=== PATIENT | male | born 1985 | race African-American/Black ===

== ENCOUNTER 2016-06-04 13:45 | Emergency (ER) | payer OTHER ==
[2016-06-04 14:27] LABS: BASOPHILS % 0.4 (0.0-1.5); EOSINOPHILS % 3.2 % (0.0-6.8); MEAN CORPUSCULAR HEMOGLOBIN 31.9 pg (28.0-34.0); MONOCYTES % 4.4 % (0.0-11.0)
[2016-06-04 14:30] LABS: eGFR (African) > 60; eGFR (Non-African) > 60
--- NOTE | 2016-06-04 14:50 | ED Physician Documentation ---
Chest Pain - HISTORIAN Historian: patient, friend - HPI Stated Complaint: Reproducible Chest Wall Pain Chief Complaint: Chest Pain Additional Information: lt low and lat chest rib pain worse w/deep breath and palpation-hx pud rec br red blood w/stool pain rated 4/10drinks 4-5 red bull per day - drank 1/2 this am w/exab pain Onset: days ago (3) Timing: gradual onset, still present Duration: waxing, waning Last known Well Date: 06/01/16 Last Known Well Time: 08:00 Severity: moderate Quality: pressure, tightness, dull, sharp Chest Pain Radiation: no radiation Chest Pain Signs/Symptoms: nausea. denies: vomiting, diaphoresis Worsened By: other (red bull or cigarettes) Relieved By: antacids, other (plrev w/ ranitidine but not now/prev tookk omiprazole but not recently) - ROS CONST: denies: no problems, recent injury - PAST HX NC risk factors: denies: cardiac disease DVT/PE Risk Factors: other (peptic ulcer disease) Neuro deficit: none GI disease: GERD, peptic ulcer Lung disease: none Surgeries/Procedures: none Allergies/Adverse Reactions: Allergies Allergy/AdvReac Type Severity Reaction Status Date / Time No Known Allergies Allergy Verified 06/04/16 13:56 Home Medications: Ambulatory Orders Medication Instructions Recorded NK [NK] 07/28/15 - SOCIAL HX Smoking History: less than 1 pack/day Alcohol Use: occasionally Drug Use: none - FAMILY HX Family HX: none - VITAL SIGNS Vital Signs: Vital Signs Temp Pulse Resp BP Pulse Ox 98.1 F 60 16 120/65 98 06/04/16 13:45 06/04/16 13:59 06/04/16 13:45 06/04/16 13:45 06/04/16 13:59 - REVIEWED ASSESSMENTS Nursing Assessment Reviewed: Yes Vitals Reviewed: Yes ED Results Lab/Radiology - Lab Results Lab Results: Lab Results 06/04/16 06/04/16 06/04/16 13:59 13:59 13:59 WBC 9.40 K/ul K/ul (4.00-12.00) RBC 4.60 M/ul M/ul (3.90-5.20) Hgb 14.7 g/dL g/dL (12.0-18.0) Hct 44.1 % % (37.0-53.0) MCV 96.0 fl fl (80.0-100.0) MCH 31.9 pg pg (28.0-34.0) MCHC 33.3 g/dL g/dL (30.0-36.0) RDW 13.3 % % (11.3-14.3) Plt Count 222 K/mm3 K/mm3 (130-400) Neut % (Auto) 73.7 % % (39.0-79.0) Lymph % (Auto) 16.7 % % (16.0-50.0) [place] % (Auto) 4.4 % % (0.0-11.0) Eos % (Auto) 3.2 % % (0.0-6.8) Baso % (Auto) 0.4 (0.0-1.5) Neut # 7.0 # k/uL # k/uL (1.4-7.7) Lymph # 1.6 # k/uL # k/uL (0.6-4.0) [place] # 0.4 # k/uL # k/uL (0.0-0.9) Eos # 0.3 # k/uL # k/uL (0.0-0.6) Baso # 0.0 # k/uL # k/uL (0.0-0.5) Reactive Lymphs % 1.5 % % (0.0-5.0) Reactive Lymphs # 0.1 # k/uL # k/uL (0.0-0.8) Sodium 143 mmol/L mmol/L (136-145) Potassium 4.0 mmol/L mmol/L (3.5-5.0) Chloride 110 mmol/L mmol/L (98-110) Carbon Dioxide 31 mmol/L mmol/L (20-32) BUN 13 mg/dL mg/dL (10-26) Creatinine 0.6 mg/dL mg/dL (0.4-1.5) Estimated Creat Clear 206 Est GFR ( Amer) > 60 (60 - ) Est GFR (Non-Af Amer) > 60 (60 - ) Glucose 100 mg/dL H mg/dL (70-99) Calcium 9.6 mg/dL mg/dL (8.5-10.5) Total Bilirubin 0.5 mg/dL mg/dL (0.2-1.2) AST 26 U/L U/L (0-41) ALT 26 U/L U/L (0-45) Alkaline Phosphatase 76 U/L U/L (46-116) Creatine Kinase 238 U/L H U/L (0-225) Troponin I < 0.03 ng/mL L ng/mL (0.03-0.06) Total Protein 7.0 g/dL g/dL (6.0-8.5) Albumin 4.8 g/dL g/dL (3.0-5.5) - Orders Orders: ED Orders Category Date Time Status Continuous EKG monitoring Q30M Care 06/04/16 13:59 Active Continuous Pulse Oximetry Q30M Care 06/04/16 13:59 Active CBC/PLATELET/DIFF Routine Lab 06/04/16 13:59 Completed CMP Routine Lab 06/04/16 13:59 Completed CREATINE KINASE Routine Lab 06/04/16 13:59 Completed TROPONIN I (cTnI) Stat Lab 06/04/16 13:59 Completed EKG WITH COMPARISON Stat Ther 06/04/16 13:59 Ordered Chest Pain Physical Exam - EXAM General Appearance: mild distress EENT: eye inspection normal Neck: nml inspection, no carotid bruit. No: JVD present, lymphadenopathy Respiratory: no resp. distress. No: chest non-tender (palp area reprod pain) CVS: reg. rate & rhythm, no murmur Abdomen: soft, non-tender Skin: warm/dry, normal color. No: cyanosis, diaphoresis, jaundice Extremities: non-tender, normal range of motion, no evidence of injury Neuro: oriented X3, CN's nml as tested, motor nml, sensation nml Discharge Clincal Impression: exab peptic uler ds, xs red bull cigs etoh Home Medications: Ambulatory Orders NK [NK] 07/28/15 Comments: stkkop red bul;l cigs and red etoh. also stalrt omiprazole 40mg daily - f/ u w/ pcp soon Condition: Good Disposition: 01 HOME, SELF-CARE Decision to Admit: NO Decision Time: 14:57
[2016-06-04 15:22] VITALS: BP 118/68
== END 2016-06-04 15:20 | disposition home or self-care (01) ==
LOC: ED 13:45
DX: K27.7 Chronic peptic ulcer, site unspecified, without hemorrhage or perforation (principal)
CPT/HCPCS: 80053; 82550; 84484; 85025; 99283

== ENCOUNTER 2016-06-28 20:12 | Emergency (ER) | payer OTHER ==
[2016-06-28] MEDS ORDERED: KETOROLAC TROMETHAMINE 60 MG/2 ML VIAL IM ONE (20:41)
[2016-06-28] MEDS ORDERED: ORPHENADRINE CITRATE 60 MG/2ML IM ONE (20:41)
--- NOTE | 2016-06-28 21:28 | ED Physician Documentation ---
General Adult - HISTORIAN Historian: patient - HPI Stated Complaint: BACK PAIN Chief Complaint: General Adult Additional Information: Sudden onset left lower back spasm while at work this evening. Has had this same pain in the past but not for years. No loss bowel or bladder control, no numbness or tingling. Timing: still present - ROS CONST: no problems - PAST HX Past History: other (back pain) Allergies/Adverse Reactions: Allergies Allergy/AdvReac Type Severity Reaction Status Date / Time No Known Allergies Allergy Verified 06/28/16 20:27 Home Medications: Ambulatory Orders Medication Instructions Recorded Cyclobenzaprine HCl [Flexeril] 10 mg PO HS PRN #20 tablet 06/28/16 Omeprazole [Prilosec] 20 mg PO D 06/28/16 - SOCIAL HX Smoking History: cigarettes (1/2 PPD for 10 yers; 1/4 PPD for 10 years prior) Alcohol Use: occasionally - FAMILY HX Family History: No - VITAL SIGNS Vital Signs: Vital Signs Temp Pulse Resp BP Pulse Ox 37.6 F L 89 20 118/68 99 06/28/16 20:23 06/28/16 20:23 06/28/16 20:23 06/28/16 20:23 06/28/16 20:23 - REVIEWED ASSESSMENTS Nursing Assessment Reviewed: Yes Vitals Reviewed: Yes Progress - Progress Progress: Better after toradol and norflex. HS Flexeril and tylenol at home. (On omeprazole). ED Results Lab/Radiology - Orders Orders: ED Orders Category Date Time Status Ketorolac Tromethamine [Toradol] Med 06/28/16 20:41 Discontinued 60 mg IM NOW ONE Orphenadrine Citrate [Norflex] Med 06/28/16 20:41 Discontinued 60 mg IM NOW ONE General Adult Physical Exam - PHYSICAL EXAM GENERAL APPEARANCE: moderate distress (at time of arrival) EENT: eye inspection normal, ENT inspection normal NECK: normal inspection, supple RESPIRATORY: no resp distress, breath sounds normal CVS: reg rate & rhythm, heart sounds normal, no murmur RECTAL: deferred BACK: normal inspection, other (some left lumbar paraspinous muscle spasm) SKIN: warm/dry, normal color EXTREMITIES: normal range of motion (gait) NEURO: CN's nml as tested, motor nml, sensation nml, other (Reflexes 2+ throughout. SLR negative to 90 degrees+ chetan. ) Discharge Clincal Impression: Back pain Qualifiers: Back pain location: low back pain Chronicity: acute Back pain laterality: left Sciatica presence: without sciatica Qualified Code(s): M54.5 - Low back pain Prescriptions: Cyclobenzaprine HCl [Flexeril] 10 mg PO HS PRN #20 tablet PRN Reason: back pain Referrals: Primary Doctor,No [Primary Care Provider] - 2 Days Home Medications: Ambulatory Orders Cyclobenzaprine HCl [Flexeril] 10 mg PO HS PRN #20 tablet 06/28/16 Omeprazole [Prilosec] 20 mg PO D 06/28/16 Condition: Good Disposition: 01 HOME, SELF-CARE Decision to Admit: NO Decision Time: 21:27
== END 2016-06-28 21:55 | disposition home or self-care (01) ==
LOC: ED 20:12
DX: M54.5 Low back pain (principal)
CPT/HCPCS: J1885; J2360; 96372; 99283

== ENCOUNTER 2017-05-25 10:41 | Emergency (ER) | payer SELFPAY ==
[2017-05-25] MEDS ORDERED: ORPHENADRINE CITRATE 60 MG/2ML IM ONE (10:53)
[2017-05-25] MEDS ORDERED: KETOROLAC TROMETHAMINE 60 MG/2 ML VIAL IM ONE (10:53)
[2017-05-25 10:56] VITALS: BP 120/73
--- NOTE | 2017-05-25 12:50 | ED Physician Documentation ---
Low Back Pain - HISTORIAN Historian: patient - HPI Stated Complaint: LBP (little to right of center), weakness to hands in early AM Chief Complaint: Low Back Pain/ Injury History: back pain Onset: hours Duration: continues in ED, worse Recent Injury: No Context: lifting, other (cutting wood this morning) Where: home Severity: moderate Quality: similar- prior back pain (spasms) Worsened By:: nothing Relieved By: nothing Further Comments: yes (31 year old male patient presents with complaints of lower back pain and spasms after cutting wood this morning. Did not take any pain medications [employer]. Denies loss of bowel or bladder; denies numbness or tingling in arms or legs.) - ROS CONST: no problems CVS/RESP: none EYES/ENT: none MS/SKIN/LYMPH: none Neuro/Psych: none - PAST HX Past History: back pain Allergies/Adverse Reactions: Allergies Allergy/AdvReac Type Severity Reaction Status Date / Time No Known Allergies Allergy Verified 05/25/17 10:56 Home Medications: Ambulatory Orders Medication Instructions Recorded Baclofen [Liorasal] 10 mg PO TID PRN #30 tablet 05/25/17 Ketorolac Tromethamine [Toradol] 10 mg PO TID #15 tablet 05/25/17 - SOCIAL HX Smoking History: cigarettes - FAMILY HX Family History: denies: none - VITAL SIGNS Vital Signs: Vital Signs Temp Pulse Resp BP Pulse Ox 97.8 F 88 16 120/73 98 05/25/17 10:42 05/25/17 11:33 05/25/17 11:33 05/25/17 11:33 05/25/17 10:42 - REVIEWED ASSESSMENTS Nursing Assessment Reviewed: Yes Vitals Reviewed: Yes Progress - Progress Progress: patient able to stand from chair without grimacing. Walked to stretcher - no c/ o pain, no grimacing. Able to lie flat and roll to stomach with no c/o pain, no grimacing. ED Results Lab/Radiology - Orders Orders: ED Orders Category Date Time Status Ketorolac Tromethamine [Toradol] Med 05/25/17 10:53 Discontinued 60 mg IM NOW ONE Orphenadrine Citrate [Norflex] Med 05/25/17 10:53 Discontinued 60 mg IM NOW ONE Low Back Pain/Injury - Physical Exam General Appearance: alert, mild distress EENT: eye inspection normal, AMRITA Resp/CVS: chest non-tender, breath sounds nml, heart sounds nml, no resp. distress, lungs clear, reg. rate & rhythm Abdomen: non-tender Back: muscle spasm (left lumbar paraspinous muscles) Straight Leg Raising: Negative Left, Negative Right Neuro/Psych: oriented x3, motor nml, sensation nml, bilat. doriflexion nml, reflexes nml, mood/affect nml Skin: normal color, warm/dry, NR, INT, PAL, DR Extremities: non-tender, normal range of motion, no evidence of injury, no edema , J, CONTENT PUBLISHER Discharge Clincal Impression: Back pain Qualifiers: Back pain location: low back pain Chronicity: acute Back pain laterality: right Sciatica presence: without sciatica Qualified Code(s): M54.5 - Low back pain Prescriptions: Baclofen [Liorasal] 10 mg PO TID PRN #30 tablet PRN Reason: Spasms Ketorolac Tromethamine [Toradol] 10 mg PO TID #15 tablet Referrals: Primary Doctor,No [Primary Care Provider] - 2 Days Condition: Stable Disposition: 01 HOME, SELF-CARE Decision to Admit: NO Decision Time: 11:25
== END 2017-05-25 11:10 | disposition home or self-care (01) ==
LOC: ED 10:41
DX: M54.5 Low back pain (principal)
CPT/HCPCS: J1885; J2360; 96372; 99283

== ENCOUNTER 2017-12-13 15:35 | Emergency (ER) | payer SELFPAY ==
[2017-12-13 15:49] VITALS: BP 131/82
[2017-12-13] MEDS: AMOXICILLIN 500 MG CAPSULE PO ONE (15:59)
[2017-12-13] MEDS: traMADol HCL 50 MG TABLET PO ONE (15:59)
--- NOTE | 2017-12-13 16:01 | ED Physician Documentation ---
Sore Throat/Dental Pain - HISTORIAN Historian: patient - HPI Stated Complaint: left upper dental pain Chief Complaint: Dental Pain Additional Information: Dental pain Left upper and lower for two days. Needs dental insurance. [place]ook total of 800 mg ibuprofen today and tylenol last evening. He has been taking hot showers to help with the pain. No other modifying factors or associated signs. - ROS CONST: no problems - PAST HX Past History: other (stomach ulcer) Allergies/Adverse Reactions: Allergies Allergy/AdvReac Type Severity Reaction Status Date / Time No Known Allergies Allergy Verified 05/25/17 10:56 Home Medications: Ambulatory Orders Medication Instructions Recorded Baclofen [Liorasal] 10 mg PO TID PRN #30 tablet 05/25/17 Ketorolac Tromethamine [Toradol] 10 mg PO TID #15 tablet 05/25/17 Amoxicillin 500 mg PO Q8H #30 capsule 12/13/17 Tramadol HCl [Ultram] 50 mg PO Q4H PRN #18 tablet 12/13/17 - SOCIAL HX Smoking History: non-smoker - FAMILY HX Family History: Yes - VITAL SIGNS Vital Signs: Vital Signs Temp Pulse Resp BP Pulse Ox 98.3 F 79 16 131/82 98 12/13/17 15:35 12/13/17 15:35 12/13/17 15:35 12/13/17 15:35 12/13/17 15:35 - REVIEWED ASSESSMENTS Nursing Assessment Reviewed: Yes ED Results Lab/Radiology - Orders Orders: ED Orders Category Date Time Status Amoxicillin [Amoxil] Med 12/13/17 15:51 Once 500 mg PO NOW ONE traMADol HCL [Ultram] Med 12/13/17 15:51 Once 50 mg PO NOW ONE Dental Pain Physical Exam - EXAM General Appearance: alert, mild distress Head/Neck: head nml inspection, no lymphadenopathy, other (#16 eroded, mandibulaar molars with decay. Some gingival erythema throughout). No: mandibular swelling (R), mandibular swelling (L) Eyes: eyes nml inspection Mouth/Throat: lips nml, pharynx nml, voice nml, no drooling, no air way problems, other (no doscreet abscess ID'ed) Ear/Nose: nml inspection. No: TM erythema Respiratory: no resp. distress, breath sounds nml CVS: reg. rate & rhythm, heart sounds nml Skin: warm/dry, normal color Neuro/Psych: none Discharge Clincal Impression: Pain, dental Prescriptions: Amoxicillin 500 mg PO Q8H #30 capsule Tramadol HCl [Ultram] 50 mg PO Q4H PRN #18 tablet PRN Reason: Pain Referrals: Primary Doctor,No [Primary Care Provider] - 2 Days Condition: Good Disposition: 01 HOME, SELF-CARE Decision to Admit: NO Decision Time: 16:00
== END 2017-12-13 16:01 | disposition home or self-care (01) ==
LOC: ED 15:35
DX: K08.89 Other specified disorders of teeth and supporting structures (principal)
CPT/HCPCS: 99283

== ENCOUNTER 2017-12-17 01:55 | Emergency (ER) | payer SELFPAY ==
--- NOTE | 2017-12-17 02:03 | ED Physician Documentation ---
Sore Throat/Dental Pain - HISTORIAN Historian: patient - HPI Stated Complaint: dental pain Chief Complaint: Dental Pain Additional Information: Patient presents to ED with a 1 week history of left upper dental pain. Patient was seen here on 12/13/17 and given Amoxil and tramadol. The meds initially improved the pain but over the past 2 days it has worsened and he ran out of Tramadol. He does not have dental insurance and cannot afford to go. Denies fever. Context: Dental Caries Associated Symptoms: denies: fever, chills Worsened By: other (air). denies: cold - ROS CONST: no problems CVS/RESP: denies: chest pain, shortness of breath GI/: denies: nausea, vomiting MS/SKIN/LYMPH: denies: rash NEURO/PSYCH: denies: headache - PAST HX Past History: gum disease Other History: none Allergies/Adverse Reactions: Allergies Allergy/AdvReac Type Severity Reaction Status Date / Time No Known Allergies Allergy Verified 12/17/17 02:00 Home Medications: Ambulatory Orders Medication Instructions Recorded Amoxicillin 500 mg PO Q8H #30 capsule 12/13/17 Tramadol HCl [Ultram] 50 mg PO Q4H PRN #18 tablet 12/13/17 Penicillin V Potassium [Pen V K] 500 mg PO TID #30 tablet 12/17/17 traMADol HCL [Ultram] 50 mg PO Q8 PRN #6 tablet 12/17/17 - SOCIAL HX Smoking History: cigarettes, greater than 1 pack/day Alcohol Use: none Drug Use: none - FAMILY HX Family History: No - VITAL SIGNS Vital Signs: Vital Signs Temp Pulse Resp BP Pulse Ox 131/82 12/13/17 16:05 - REVIEWED ASSESSMENTS Nursing Assessment Reviewed: Yes Vitals Reviewed: Yes Dental Pain Physical Exam - EXAM General Appearance: no acute distress, alert Head/Neck: head nml inspection, no lymphadenopathy, other. No: maxillary swelli ng (L) Eyes: PERRL Mouth/Throat: dental tenderness, gum swelling around teeth, widespread dental decay Ear/Nose: nml inspection Respiratory: no resp. distress, breath sounds nml CVS: reg. rate & rhythm, heart sounds nml Abdomen: soft Extremities: non-tender Skin: warm/dry Neuro/Psych: none Discharge Clincal Impression: Dental caries Prescriptions: Penicillin V Potassium [Pen V K] 500 mg PO TID #30 tablet traMADol HCL [Ultram] 50 mg PO Q8 PRN #6 tablet PRN Reason: Pain Referrals: Primary Doctor,No [Primary Care Provider] - 2 Days Additional Instructions: Follow up with Dentist as soon as possible. Smoking cessation recommended. Condition: Stable Disposition: 01 HOME, SELF-CARE Decision to Admit: NO Date of Decison to Admit: 12/17/17 Decision Time: 02:21
[2017-12-17] MEDS ORDERED: Lidocaine 2% 20ml Vial IP ONE (02:05)
[2017-12-17 02:07] VITALS: BP 131/76
[2017-12-17] MEDS: Lidocaine 1% 5ml(IM or SUTURE)(PAIN CLINIC) ONE (02:19)
[2017-12-17] MEDS: Lidocaine 1% 5ml(IM or SUTURE)(PAIN CLINIC) IJ ONE (02:19)
[2017-12-17] MEDS: cefTRIAXone SODIUM 1 GM VIAL IM ONE (02:19)
[2017-12-17] MEDS: traMADol HCL 50 MG TABLET PO ONE (02:19)
== END 2017-12-17 02:26 | disposition home or self-care (01) ==
LOC: ED 01:55
DX: K02.9 Dental caries, unspecified (principal)
CPT/HCPCS: 96372; 99283; J0696

== ENCOUNTER 2018-01-11 11:21 | Emergency (ER) | payer SELFPAY ==
--- NOTE | 2018-01-11 12:17 | ED Physician Documentation ---
Lower Extremity Injury - HISTORIAN Historian: patient - HPI Stated Complaint: Log dropped on Rt foot, pain to base of 4th & 5th toes Chief Complaint: Lower Extremity Injury Onset: hours (16) Where: home Severity: mild Context: direct blow (wood log) Associated Symptoms:: swelling. denies: tingling, snapping sensation Modifying Factors:: pain on movement - ROS CONST: no problems CVS/RESP: none GI/: denies: nausea, vomiting MS/SKIN/LYMPH: none NEURO: denies: headache - PAST HX Past History: none Allergies/Adverse Reactions: Allergies Allergy/AdvReac Type Severity Reaction Status Date / Time No Known Allergies Allergy Verified 12/17/17 02:00 Home Medications: Ambulatory Orders Medication Instructions Recorded Amoxicillin 500 mg PO Q8H #30 capsule 12/13/17 Tramadol HCl [Ultram] 50 mg PO Q4H PRN #18 tablet 12/13/17 Penicillin V Potassium [Pen V K] 500 mg PO TID #30 tablet 12/17/17 traMADol HCL [Ultram] 50 mg PO Q8 PRN #6 tablet 12/17/17 - SOCIAL HX Smoking History: cigarettes, greater than 1 pack/day Alcohol Use: none Drug Use: none - FAMILY HX Family History: none - VITAL SIGNS Vital Signs: Vital Signs Temp Pulse Resp BP Pulse Ox 99 F 66 14 126/81 98 01/11/18 11:22 01/11/18 11:22 01/11/18 11:22 01/11/18 11:22 01/11/18 11:22 - REVIEWED ASSESSMENTS Nursing Assessment Reviewed: Yes Vitals Reviewed: Yes ED Results Lab/Radiology - Orders Orders: ED Orders Category Date Time Status FOOT 3 VIEWS OR MORE [RAD] Stat Exams 01/11/18 Ordered Lower Extremities Injury Phy - Physical Exam General Appearance: no acute distress, alert Hips: right hip: non-tender Legs: right: non-tender Knees: right: non-tender Ankle: right: non-tender Foot: right foot: ecchymosis (base of 4th/4th metatarsal), soft tissue tenderness, swelling Gait: normal Neuro/Vascular/Tendon: no vascular compromise, motor nml, sensation nml Head/ENT: nml inspection Neck/Back: nml inspection Resp/CVS: chest non-tender, breath sounds nml, heart sounds nml Abdomen: non-tender Discharge Clincal Impression: Injury of right foot Qualifiers: Encounter type: initial encounter Qualified Code(s): S99.921A - Unspecified injury of right foot, initial encounter Referrals: Primary Doctor,No [Primary Care Provider] - 2 Days Additional Instructions: 1. Keep foot elevated at rest 2. Ice to affected area as needed for swelling 3. Tylenol and/or Ibuprofen as needed for pain 4. Follow up as needed with PCP. Condition: Stable Decision to Admit: NO Date of Decison to Admit: 01/11/18 Decision Time: 12:25
[2018-01-11 12:38] VITALS: BP 124/64
--- NOTE | 2018-01-12 03:53 | Diagnostic Imaging Report ---
ZEUS VIZCAINO [facility] [id number] [facility] [address] [address] Report Submission Date: Jan 11, 2018 12:04:43 PM [employer] Patient Study Name: ROBERT MARTINEZ Date: Jan 11, 2018 11:36:07 AM [employer] Modality Type: DX Gender: M Description: LOWER EXTREMITY : 83 Institution: [facility] Physician: ZEUS VIZCAINO Examination: Plain film right foot History: RT FOOT, PAIN ON LATERAL 5TH DIGIT AND LATERAL 5TH METATARSAL AREA AFTER DROPPING A LOG ON FOOT LAST NIGHT (Hx) Findings: 3 views of the right foot demonstrates lucency involving the mid aspect of the proximal phalanx 5th digit however only viewed on one image. No other fracture or dislocation. No soft tissue swelling. No joint effusion. Impression: Likely fracture proximal phalanx 5th digit. Correlate with point of discomfort. Electronically signed on Jan 11, 2018 12:04:43 PM [employer] by: Todd BECKETT
== END 2018-01-11 12:20 | disposition home or self-care (01) ==
LOC: ED 11:21
DX: S92.511A Displaced fracture of proximal phalanx of right lesser toe(s), initial encounter for closed fracture (principal); W20.8XXA Other cause of strike by thrown, projected or falling object, initial encounter; Y93.89 Activity, other specified; Y92.009 Unspecified place in unspecified non-institutional (private) residence as the place of occurrence of the external cause
CPT/HCPCS: 29550; 73630; 99282; 99283

== ENCOUNTER 2018-03-18 22:13 | Emergency (ER) | payer OTHER ==
--- NOTE | 2018-03-18 22:22 | ED Physician Documentation ---
Sore Throat/Dental Pain - HISTORIAN Historian: patient - HPI Stated Complaint: left dental pain Chief Complaint: Dental Pain Onset: days ago (1) Context: Fractured Tooth Associated Symptoms: moderate. denies: fever, sore throat, unable to swallow, congestion Further Comments: yes (He reports he has had this pain on and off but got insurance this month so he will be seeing a dentist. States he does not want PCN due to "that never helps it go away" He states he has had Ibuprofen today and his pain is 7/10. He is currently using an ice pack with mild relief) - ROS CONST: no problems NEURO/PSYCH: none - PAST HX Past History: none Immunizations: UTD Allergies/Adverse Reactions: Allergies Allergy/AdvReac Type Severity Reaction Status Date / Time No Known Allergies Allergy Verified 03/18/18 22:29 - SOCIAL HX Smoking History: cigarettes Alcohol Use: none Drug Use: none - FAMILY HX Family History: No - VITAL SIGNS Vital Signs: Vital Signs Temp Pulse Resp BP Pulse Ox 124/64 01/11/18 12:35 - REVIEWED ASSESSMENTS Nursing Assessment Reviewed: Yes Vitals Reviewed: Yes Dental Pain Physical Exam - EXAM General Appearance: no acute distress Head/Neck: head nml inspection Eyes: eyes nml inspection Mouth/Throat: lips nml, pharynx nml, voice nml, no drooling, no air way problems, gum swelling around teeth (left back tooth ) Respiratory: no resp. distress, breath sounds nml CVS: reg. rate & rhythm, heart sounds nml Abdomen: soft, no distension Extremities: non-tender Skin: warm/dry Neuro/Psych: none Discharge Clincal Impression: Pain, dental Referrals: Primary Doctor,No [Primary Care Provider] - 2 Days Comments: 1. Clindamycin 300 mg take 1 by mouth three times per day x 10 days 2. Tramadol 50 take 1 by mouth every 8 hours as needed for pain 3. Warm salt water gargles 4. Ibuprofen or Tylenol as directed for mild pain 5. Follow up with [facility] Condition: Stable Disposition: 01 HOME, SELF-CARE Decision to Admit: NO Date of Decison to Admit: 03/18/18 Decision Time: 22:40
[2018-03-18] MEDS ORDERED: KETOROLAC TROMETHAMINE 60 MG/2 ML VIAL IM ONE (22:31)
[2018-03-18] MEDS ORDERED: CLINDAMYCIN HCL 150 MG CAPSULE PO ONE (22:31)
[2018-03-18 23:09] VITALS: BP 124/81
== END 2018-03-18 22:55 | disposition home or self-care (01) ==
LOC: ED 22:13
DX: K08.89 Other specified disorders of teeth and supporting structures (principal); Z72.0 Tobacco use
CPT/HCPCS: 96372; 99282; 99283; A9270; J1885

== ENCOUNTER 2018-08-20 10:33 | Emergency (ER) | payer OTHER ==
--- NOTE | 2018-08-20 10:36 | ED Physician Documentation ---
General Adult - HISTORIAN Historian: patient - HPI Stated Complaint: shorness of breath Chief Complaint: Dyspnea Onset: days ago (3) Timing: still present Severity: mild Further Comments: yes (He states three days ago he started to "feel bad" fatigue, cough, headache and fever. He has not taken anything OTC. He has right sided rib pain with cough. His cough is productive.) - ROS CONST: fever, recent illness CVS/RESP: cough GI/: none MS/SKIN/LYMPH: none NEURO/PSYCH: headache. denies: fainting, dizziness - PAST HX Past History: none Allergies/Adverse Reactions: Allergies Allergy/AdvReac Type Severity Reaction Status Date / Time No Known Allergies Allergy Verified 08/20/18 10:47 Home Medications: Ambulatory Orders Medication Instructions Recorded NK 03/18/18 - SOCIAL HX Smoking History: cigarettes Alcohol Use: none Drug Use: none - FAMILY HX Family History: No - VITAL SIGNS Vital Signs: Vital Signs Temp Pulse Resp BP Pulse Ox 124/81 03/18/18 22:50 - REVIEWED ASSESSMENTS Nursing Assessment Reviewed: Yes Vitals Reviewed: Yes Progress - Progress Progress: 1145: discussed results and plan he is agreeable DG ED Results Lab/Radiology - Radiology Radiology Impressions: Examination: PA and lateral chest. History: Evaluate lung hammonds. Comparison exam: None provided. Findings: PA and lateral views of the chest demonstrates a normal cardiac and mediastinal silhouette. No focal infiltrate. No blunting of the costophrenic margins. Osseous structures are appropriate for age. Impression: No acute pulmonary process. Electronically signed on Aug 20, 2018 11:16:57 AM CDT by: Todd Lofton General Adult Physical Exam - PHYSICAL EXAM GENERAL APPEARANCE: no distress EENT: eye inspection normal, ENT inspection normal, pharynx normal, no signs of dehydration, AMRITA NECK: normal inspection RESPIRATORY: no resp distress, wheezes (RUL - improved post neb ) CVS: reg rate & rhythm, heart sounds normal ABDOMEN: soft, normal bowel sounds, no distension BACK: normal inspection SKIN: warm/dry, normal color EXTREMITIES: non-tender, normal range of motion, no evidence of injury, no edema NEURO: oriented X3 Discharge Clincal Impression: URI (upper respiratory infection) Qualifiers: URI type: unspecified URI Qualified Code(s): J06.9 - Acute upper respiratory infection, unspecified Referrals: Primary Doctor,No [Primary Care Provider] - 2 Days Comments: 1. Zpack - as directed 2. Medrol Dose Pack - as directed 3. ProAir - 2puffs every 4 hours as needed for cough 4. Tessalon Pearls - take 1 by mouth every 8 hours as needed for cough 5. Increase fluids 6. DO NOT SMOKE 7. See PCP in 2-4 days 8. Return to ER for increasing concerns Condition: Stable Disposition: 01 HOME, SELF-CARE Decision to Admit: NO Date of Decison to Admit: 08/20/18 Decision Time: 11:54
[2018-08-20 10:49] VITALS: BP 146/81
[2018-08-20 11:05] LABS: BASOPHILS % 0.6 % (0.0-1.5); NEUTROPHILS # 12.2 # k/uL (1.4-7.7)
[2018-08-20] MEDS: 0.9 % SODIUM CHLORIDE 1,000 ML IV ONE (11:06)
[2018-08-20 11:33] LABS: eGFR (Non-African) > 60
--- NOTE | 2018-08-20 11:33 | Diagnostic Imaging Report ---
JOSE MORRIS [facility] [address] [facility] [address] [place], [place]. [address] Report Submission Date: Aug 20, 2018 11:16:57 AM CDT Patient Study Name: ROBERT MARTINEZ Date: Aug 20, 2018 10:52:03 AM CDT Modality Type: DX Gender: M Description: CHEST 2VIEW : 83 Institution: [facility] Physician: JOSE MORRIS Examination: PA and lateral chest. History: Evaluate lung hammonds. Comparison exam: None provided. Findings: PA and lateral views of the chest demonstrates a normal cardiac and mediastinal silhouette. No focal infiltrate. No blunting of the costophrenic margins. Osseous structures are appropriate for age. Impression: No acute pulmonary process. Electronically signed on Aug 20, 2018 11:16:57 AM CDT by: Todd BECKETT
[2018-08-20] MEDS: IPRATROPIUM/ALBUTEROL SULFATE 3 ML AMPUL.NEB NEB ONE (11:35)
== END 2018-08-20 11:58 | disposition home or self-care (01) ==
LOC: ED 10:33
DX: J06.9 Acute upper respiratory infection, unspecified (principal)
CPT/HCPCS: 71046; 80053; 85025; 94640; 94760; 96360; 99283; 99284; J7030; S1016

== ENCOUNTER 2018-12-31 09:09 | Emergency (ER) | payer OTHER ==
--- NOTE | 2018-12-31 09:21 | ED Physician Documentation ---
Sore Throat/Dental Pain - HISTORIAN Historian: patient - HPI Stated Complaint: left lower back tooth - pain x 1 day Chief Complaint: Dental Pain Onset: days ago (1) Context: Dental Caries Associated Symptoms: moderate (08/22). denies: fever, chills Further Comments: yes (He states he is having dental pain x 1 day . No fever. He has pain when he is trying to chew or eat. He is eating normally for now. He has not had any OTC meds for his pain and he has some avaliable at home.) - ROS CONST: no problems NEURO/PSYCH: denies: headache - PAST HX Past History: none Allergies/Adverse Reactions: Allergies Allergy/AdvReac Type Severity Reaction Status Date / Time No Known Allergies Allergy Verified 12/31/18 09:16 Home Medications: Ambulatory Orders Medication Instructions Recorded NK 03/18/18 - SOCIAL HX Smoking History: cigarettes Alcohol Use: none Drug Use: none - FAMILY HX Family History: No - VITAL SIGNS Vital Signs: Vital Signs Temp Pulse Resp BP Pulse Ox 146/81 08/20/18 10:35 - REVIEWED ASSESSMENTS Nursing Assessment Reviewed: Yes Vitals Reviewed: Yes Dental Pain Physical Exam - EXAM General Appearance: no acute distress, alert Head/Neck: head nml inspection Eyes: eyes nml inspection Mouth/Throat: lips nml, gums nml, pharynx nml, voice nml, no drooling, dental tenderness (left lower back tooth ), widespread dental decay Abdomen: soft Skin: warm/dry Neuro/Psych: none Discharge Clincal Impression: Dental caries Referrals: Primary Doctor,No [Primary Care Provider] - 2 Days Comments: 1. Amoxicillin 500 mg take 1 by mouth three times per day x 10 days 2. Warm salt water gargles 3. OTC Meds as directed as needed for pain 4. FOLLOW UP WITH A DENTAL PROVIDER 5. Return to ER for any increased concerns Condition: Stable Disposition: 01 HOME, SELF-CARE Decision to Admit: NO Date of Decison to Admit: 12/31/18 Decision Time: 09:21
[2018-12-31 09:23] VITALS: BP 153/70
== END 2018-12-31 09:26 | disposition home or self-care (01) ==
LOC: ED 09:09
DX: K02.9 Dental caries, unspecified (principal)
CPT/HCPCS: 99283; 99284